=== PATIENT | female | born 2000 | race Two or more races ===

== ENCOUNTER 2024-07-07 17:21 | Emergency (ER) | payer BC, OTHER ==
[~2024-07-07] VITALS: Ht 157.5 cm; Wt 75.4 kg
[2024-07-07 18:36] LABS: Urine Bacteria MANY /hpf (None Seen); Urine Blood Negative /uL (Negative); Urine Clarity Clear (Clear); Urine Color Light-Yellow (Yellow); Urine Protein, UAD Negative (Negative); Urine Specific Gravity 1.018 (1.001-1.035); Urine Squamous Epithelial Cell FEW /hpf (<5); Urine Urobilinogen Normal (Negative); Urine WBC 4 /HPF (0-5)
[2024-07-07 18:44] VITALS: BP 116/64; PULSE 86; RESP 16; TEMP 98.9; O2SAT 100
[2024-07-07] MEDS ORDERED: CLOT1CRE51 VA (19:53)
--- NOTE | 2024-07-07 19:53 | ED.PDOC ---
History of Present Illness HPI Comments PT CAME IN WITH A CC OF VAGINAL DISCHARGE GREEN IN COLOR AND FOUL IN ODOR SINCE 06/22/24 PT REPORTS DISCHARGE IS BECOMING THICK IN CONSISTENCY AND INCREASING. PT IS APPROX 11 WEEKS . DENIES VAGINAL BLEEDING, SPOTTING, PAIN, NAUSEA OR VOMITING PATIENT NOTES MONOGAMOUS WITH HER DENIES HISTORY OF STDS DOES STATE SHE WAS RECENTLY TESTED FOR STDS IN HIS NEGATIVE,. Chief Complaint: Vaginal Discharge Time Seen by MD: 18:19 Reviewed Notes: Nurses Notes, Medications, Allergies Allergies: Coded Allergies: NO KNOWN ALLERGIES (Unverified , 07/07/24) Home Meds Active Scripts Metronidazole (Flagyl) 500 Mg Tab, 1 TAB PO BID for 7 Days, #14 TAB Prov:DAVE PRINCE 07/07/24 Clotrimazole (Clotrimazole) 1 % Cre, 1 APPLIC [place] HS for 7 Days, #7 APPLIC Prov:DAVE PRINCE 07/07/24 Information Source: Patient Mode of Arrival: Ambulatory Past Medical History PAST MEDICAL HISTORY: Denies Surgical History: Denies all surgeries CANS VACUUM TESTER History: No Pertinent CANS VACUUM TESTER History Family History Family History: Reviewed,noncontributory to illness, No family hx of Cancer, No family hx of DM, No family hx of Heart bobby, No family hx of HTN, No family hx ofKidney bobby, No family hx of Liver bobby, No family hx of Lung bobby, No family hx of Stroke Social History Smoker: Non-Smoker Alcohol: Denies ETOH Use Drugs: Denies Drug Use Constitutional: denies: chills, diaphoresis, fatigue, fever, malaise, sweats, weakness, others EENTM: denies: blurred vision, double vision, ear bleeding, ear discharge, ear drainage, ear pain, ear ringing, eye pain, eye redness, hearing loss, mouth pain, mouth swelling, nasal discharge, nose bleeding, nose congestion, nose pain, photophobia, tearing, throat pain, throat swelling, voice changes, others Respiratory: denies: cough, hemoptysis, orthopnea, SOB at rest, shortness of breath, SOB with excertion, stridor, wheezing, others Cardiovascular: denies: chest pain, dizzy spells, diaphoresis, Dyspnea on exertion, edema, irregular heart beat, left arm pain, lightheadedness, palpitations, PND, syncope, others Gastrointestinal: denies: abdomen distended, abdominal pain, blood streaked bowels, constipated, diarrhea, dysphagia, difficulty swallowing, hematemesis, melena, nausea, poor appetite, poor fluid intake, rectal bleeding, rectal pain, vomiting, others Genitourinary: reports: vagina discharge; denies: abnormal vagina bleeding, burning, dyspareunia, dysuria, flank pain, frequency, hematuria, incontinence, pain, , urgency, others Neurological: denies: dizziness, fainting, headache, left sided numbness, left sided weakness, numbness, paresthesia, pre-existing deficit, right sided numbness, right sided weakness, seizure, speech problems, tingling, tremors, weakness, others Musculoskeletal: denies: back pain, gout, joint pain, joint swelling, muscle pain, muscle stiffness, neck pain, others Integumetry: denies: bruises, change in color, change in hair/nails, dryness, laceration, lesions, lumps, rash, wounds, others Allergic/Immunocompromised: denies: Difficulty Healing, Frequent Infections, Hives, Itching, others Hematologic/Lymphatic: denies: anemia, blood clots, easy bleeding, easy bruising, swollen glands, others Endocrine: denies: excessive hunger, excessive sweating, excessive thirst, excessive urination, flushing, intolerance to cold, intolerance to heat, unexplained weight gain, unexplained weight loss, others Psychiatric: denies: anxiety, bipolar disorder, depression, hopeless, panic disorder, schizophrenia, sleepless, suicidal, others Physical Exam General Appearance: No Apparent Distress, Normal HEENT: Pharynx Normal Neck: Full Range of Motion, Non-Tender Respiratory: Lungs Clear, No Respiratory Distress, Normal Breath Sounds Cardiovascular: No Edema, No JVD, No Murmur, No Gallop, Normal Peripheral Pulses, Regular Rate/Rhythm Breast Exam: Deferred Gastrointestinal: No Organomegaly, Non Tender, No Pulsatile Mass, Normal Bowel Sounds, Soft Genitalia: Deferred Pelvic: Discharge (Thick white discharge), No cerv. Motion Tender, No Masses, Normal External Exam, Other (Deputy Probation Officer present. Cervix mild erythema with white thick discharge no noted blood or green discharge. Mild foul odor. [place] obtained wet mount sent patient tolerating exam well) Rectal: Deferred Extremities: Normal capillary refill, Normal inspection, Normal range of motion, Non-tender, No pedal edema Musculoskeletal : Apperance: Normal Neurologic: Alert, camera tuning engineer II-XII nml as Tested, No Motor Deficits, Normal Affect, Normal Mood, No Sensory Deficits Cerebellar Function: Normal Reflexes: Normal Skin: Dry, Normal Color, Warm Lymphatic: No Adenopathy Was a procedure done? Was a procedure done?: No Differential Dx Considerations may include: PV, yeast infection, Trichomonas, gonorrhea, chlamydia, X-Ray, Labs, Meds, VS Vital Signs Date Time Temp Pulse Resp B/P (MAP) Pulse Ox O2 Delivery O2 Flow Rate FiO2 07/07/24 18:44 86 16 100 Room Air 07/07/24 18:44 98.9 86 16 116/64 (81) 100 98.9 07/07/24 18:39 98.0 88 18 113/71 (85) 100 98.0 Lab Test 07/07/24 19:39 07/07/24 17:38 07/07/24 17:34 Range/Units Vaginal WBC (Wet Prep) Rare Vaginal RBC (Wet Prep) None seen Vaginal Epithelial Cells (Wet Prep) Moderate Vaginal Bacteria (Wet Prep) Many Vaginal Trichomonas (Wet Prep) Not present Vaginal Yeast (Wet Prep) None seen Vaginal Clue Cells (Wet Prep) None seen POC Glucose 83 70-106 mg/dl Urine Color Light-yellow Yellow Urine Clarity Clear Clear Urine pH 6.0 5.0-9.0 Urine Specific [place] 1.018 1.001-1.035 Urine Protein Negative Negative Urine Ketones Trace Negative Urine Blood Negative Negative /uL Urine Nitrite Negative Negative Urine Bilirubin Negative Negative Urine Urobilinogen Normal Negative mg/dL Urine Leukocyte Esterase Negative Negative /uL Urine RBC 2 0 - 4 /hpf Urine Microscopic WBC 4 0-5 /HPF Urine Squamous Epithelial Cells Few <5 /hpf Urine Bacteria Many H None Seen /hpf Urine Glucose Normal Normal mg/dL X-Ray, Labs, Meds, VS Comment UA within normal limits. Likely yeast infection, per the wet mount came back with multiple bacteria we will also treat for BV. Script clotrimazole vaginal and Flagyl 500 mg twice daily x7 days. Advised patient of the risks versus benefits of taking the medication. Advised on side effects advised to take medication as prescribed. Advised patient to follow up with her OBGYN and PCP within 2-3 days advised to rest increase p.o. fluids with electrolytes. ER return precautions given patient indicates understanding and agrees with discharge plan of care. Time of 1ST Reevaluation: 19:00 Reevaluation 1ST: Unchanged Time of 2ND Reevaluation: 19:50 Reevaluation 2ND: Improved Patient Education/Counseling: Diagnosis, Treatment, Prognosis, Need For Follow Up Family Education/Counseling: No Family Present Departure 1 Departure Time of Disposition: 19:50 Impression: Primary Impression: Vaginitis Qualified Codes: N76.0 - Acute vaginitis Disposition: HOME / SELF CARE / HOMELESS Condition: Stable e-Prescriptions Metronidazole (Flagyl) 500 Mg Tab 1 TAB PO BID for 7 Days, #14 TAB Prov: DAVE PRINCE 07/07/24 Clotrimazole (Clotrimazole) 1 % Cre 1 APPLIC [place] HS for 7 Days, #7 APPLIC Prov: DAVE PRINCE 07/07/24 Discharged With: Self Critical Care Note Critical Care Time?: No Stability Stability form required: No DAVE PRINCE July 07, 2024 19:53
[2024-07-07 20:02] LABS: Vaginal Bacteria Many; Vaginal Epithelial Cells Moderate; Vaginal Trichomonas Not Present
[2024-07-07 20:03] LABS: Vaginal Clue Cells None Seen
[2024-07-07] MEDS ORDERED: METR-344 PO (20:10)
== END 2024-07-07 19:58 | disposition home or self-care (01) ==
LOC: ER 17:21
DX: N76.0 Acute vaginitis (principal); Z3A.11 11 weeks gestation of pregnancy
CPT/HCPCS: 81001; 82947; 82962; 87210